=== PATIENT | male | born 1980 | race Caucasian/White ===

== ENCOUNTER 2016-12-15 08:58 | Emergency (ER) | payer OTHER ==
--- NOTE | ~2016-12-15 | CT52 ---
[facility] A Service of [facility] & [facility] RADIOLOGY TEXT RESULTS PATIENT: DIONTE ROMERO LOCATION: [facility] : 76 UNIT #: [id number] AGE: [address]: Ricardo Mcneill MD SEX: M ORDER DR: [id number] [facility] [address] [place], [place] [address] [id number] E MR#: [id number] Acc #: [id number] NAME: DIONTE ROMERO : 1980 SEX: M STUDY DATE/TIME: 12/15/2016 8:09 UNIT: [facility] ROOM: STUDY DESCRIPTION: CT Cervical Spine Wo Cont Attending Physician: Ricardo Mcneill M.D. Ordering Physician: Ricardo Mcneill M.D. Primary Care Physician: No Primary Care Physician MEDICAL IMAGING REPORT This report is preliminary unless electronic signature is present EXAM CT cervical spine, 12/15/2016. HISTORY Unwitnessed seizure at home, witnessed seizure ER, headache all over. History of seizures. Neck pain today. TECHNIQUE CT cervical spine performed. Bone and soft tissue windows are reviewed. Sagittal and coronal reconstructions performed. This CT exam was performed with one or more of the following radiation dose reduction techniques: automatic exposure control, adjustment of mA and/or kV according to patient size, and iterative reconstruction. COMPARISON STUDIES No prior CTs of cervical spine for comparison. FINDINGS Visualized portions of brain are unremarkable. Nasopharyngeal, oropharyngeal, pharyngeal mucosal retropharyngeal spaces, larynx, subglottic airway, visualized superior mediastinum, lung apices, thyroid, submandibular, and visualized parotid glands show no acute abnormalities. No adenopathy. Unopacified vascular structures unremarkable. No evidence of acute traumatic soft tissue abnormality. Alignment of cervical spine in lateral projection normal. There is cervicothoracic scoliosis with mild rightward curvature in the cervical spine and leftward curvature incompletely visualized in the upper thoracic spine. Vertebral body heights, intervertebral disc space heights, and facet joint relationships are normal. There is no indication of traumatic malalignment. C2-C3, C3-C4, C4-C5, C5-C6, C6-C7, C7-T1, T1-T1, T2-T3, T3-T4: No disc bulge or herniation. Spinal canal diameter normal. Neural foramina STS. [facility] A Service of [facility] & [facility] RADIOLOGY TEXT RESULTS PATIENT: DIONTE ROMERO LOCATION: [facility] : 76 UNIT #: [id number] AGE: [address]: Ricardo Mcneill MD SEX: M ORDER DR: patent without evidence of exiting nerve impingement. IMPRESSION 1. No traumatic fracture or malalignment is seen. 2. Cervicothoracic scoliosis with mild rightward curve in cervical spine and leftward curve in the partially visualized upper thoracic spine. 3. No significant disc bulge. Spinal canal diameter normal. Neural foramina patent without evidence of exiting nerve impingement. 4. No paraspinal traumatic soft tissue abnormality suggested. 5. Please see complete details in body of report above. Dictated by... Yared French M.D. THIS IS AN ELECTRONICALLY VERIFIED REPORT Yared French M.D. at 12/16/2016 4:50 PM [place]/ovidio TD: 12/15/2016 10:38 JOB #: [id number] MEDICAL IMAGING REPORT Page 1 of 1 COPY
--- NOTE | ~2016-12-15 | CR181 ---
[facility] A Service of [facility] & [facility] RADIOLOGY TEXT RESULTS PATIENT: DIONTE ROMERO LOCATION: [facility] : 78 UNIT #: [id number] AGE: [address]: Ricardo Mcneill MD SEX: M ORDER DR: [id number] [facility] [address] [place], [place] [address] [id number] P MR#: [id number] Acc #: [id number] NAME: DIONTE ROMERO : 1980 SEX: M STUDY DATE/TIME: 12/15/2016 7:19 UNIT: [facility] ROOM: STUDY DESCRIPTION: CR Lumbar Spine 2 or 3 Views Attending Physician: Ricardo Mcneill M.D. Ordering Physician: Ricardo Mcneill M.D. Primary Care Physician: Joselin Sorensen M.D. MEDICAL IMAGING REPORT This report is preliminary unless electronic signature is present EXAM Lumbar spine series, 12/15/2016 HISTORY Trauma. The patient reports possible seizures today. Reports soreness in back. FINDINGS AP and two lateral views of the lumbar spine are presented. No traumatic fracture or malalignment. Vertebral body heights and intervertebral disc space heights are preserved. Mild to moderate facet degenerative changes suggested L3, L4, L4, L5, L5-S1. Visualized bony pelvis and lower thoracic spine unremarkable. Visualized lung bases clear. Visualized bowel gas pattern normal. Dictated by... Yared French M.D. THIS IS AN ELECTRONICALLY VERIFIED REPORT Yared French M.D. at 12/16/2016 4:50 PM [place] TD: 12/15/2016 08:52 JOB #: [id number] MEDICAL IMAGING REPORT Page 1 of 1 COPY
--- NOTE | ~2016-12-15 | CR72 ---
[facility] A Service of [facility] & [facility] RADIOLOGY TEXT RESULTS PATIENT: DIONTE ROMERO LOCATION: [facility] : 78 UNIT #: [id number] AGE: [address]: Ricardo Mcneill MD SEX: M ORDER DR: [id number] [facility] [address] [place], [place] [address] [id number] P MR#: [id number] Acc #: [id number] NAME: DIONTE ROMERO : 1980 SEX: M STUDY DATE/TIME: 12/15/2016 7:19 UNIT: [facility] ROOM: STUDY DESCRIPTION: CR Chest Single View Portable Attending Physician: Ricardo Mcneill M.D. Ordering Physician: Ricardo Mcneill M.D. Primary Care Physician: Joselin Sorensen M.D. MEDICAL IMAGING REPORT This report is preliminary unless electronic signature is present EXAM Portable chest x-ray HISTORY Altered mental status. Additional history: reports possible seizures today. Reports soreness in back. FINDINGS AP radiograph of the chest is presented. Comparison 07/03/2016 at 0244 hours. Heart and mediastinum normal in size and contour. Lungs well-inflated. No acute pulmonary disease, pneumothorax, or suspicious nodule. Bony structures are unremarkable. Visualized upper abdomen unremarkable. Dictated by... Yared French M.D. THIS IS AN ELECTRONICALLY VERIFIED REPORT Yared French M.D. at 12/16/2016 4:49 PM [place]/indu TD: 12/15/2016 08:56 JOB #: [id number] MEDICAL IMAGING REPORT Page 1 of 1 COPY
--- NOTE | ~2016-12-15 | CT71 ---
[facility] A Service of [facility] & [facility] RADIOLOGY TEXT RESULTS PATIENT: DIONTE ROMERO LOCATION: [facility] : 76 UNIT #: [id number] AGE: [address]: Ricardo Mcneill MD SEX: M ORDER DR: [id number] [facility] [address] [place], [place] [address] [id number] E MR#: [id number] Acc #: [id number] NAME: DIONTE ROMERO : 1980 SEX: M STUDY DATE/TIME: 12/15/2016 8:09 UNIT: [facility] ROOM: STUDY DESCRIPTION: CT Head Wo Contrast Attending Physician: Ricardo Mcneill M.D. Ordering Physician: Ricardo Mcneill M.D. Primary Care Physician: No Primary Care Physician MEDICAL IMAGING REPORT This report is preliminary unless electronic signature is present EXAM CT of the head 12/15/2016 HISTORY Seizures, un-witnessed seizure at home. Witnessed seizure at ER. Headache. History of seizures. All over neck pain today. TECHNIQUE CT head performed skull base through vertex without intravenous contrast. No prior studies for comparison. This CT exam was performed with one or more of the following radiation dose reduction techniques: automatic exposure control, adjustment of mA and/or kV according to patient size, and iterative reconstruction. FINDINGS Multiple images significantly degraded by motion artifact. No definite intracranial hemorrhage or acute cortical ischemia. Areas of ischemia or hemorrhage could be obscured by motion artifact. No intracranial mass effect or abnormal fluid collection. Ventricles, cisterns, and sulci are normal in size and contour. The intraorbital soft tissues unremarkable. Mucous retention cysts in bilateral maxillary sinuses. No acute fracture. Appearance of the nasal bones suggest old healed left nasal bone fracture. Correlate with history and exam. No overlying acute-appearing soft tissue abnormality. IMPRESSION 1. Motion-degraded examination. No acute abnormality is seen in the brain but given the limitations of the examination, if the patient has ongoing neurologic symptoms, consider follow-up imaging. In light of patient history, consider follow-up seizures protocol MRI if patient is a candidate for MRI. 2. No acute-appearing fracture. Appearance of the left nasal bones suggest old healed left nasal bone fracture. No overlying STS. [facility] A Service of [facility] & [facility] RADIOLOGY TEXT RESULTS PATIENT: DIONTE ROMERO LOCATION: [facility] : 76 UNIT #: [id number] AGE: [address]: Ricardo Mcneill MD SEX: M ORDER DR: acute-appearing soft tissue abnormality. Correlate with exam history. 3. Bilateral mucous retention cyst in maxillary sinuses. Dictated by... Yared French M.D. THIS IS AN ELECTRONICALLY VERIFIED REPORT Yared French M.D. at 12/16/2016 4:50 PM [place]/indu TD: 12/15/2016 09:55 JOB #: [id number] MEDICAL IMAGING REPORT Page 1 of 1 COPY
--- NOTE | ~2016-12-15 | EKG ---
PATIENT: DIONTE ROMERO UNIT #: [id number] Ventricular Rate: 85 BPM Atrial Rate: 85 BPM P-R Interval: 146 ms QRS Duration: 90 ms Q-T Interval: 370 ms QTC Calculation(Bezet): 440 ms P [place]: 43 degrees Calculated R [place]: 44 degrees Calculated T [place]: 22 degrees Diagnosis Line: Normal sinus rhythm Diagnosis Line: Normal ECG Diagnosis Line: When compared with ECG of 03-JUL-2016 01:42, Diagnosis Line: No significant change was found Diagnosis Line: Confirmed by SHAR ARORA MD ([id number]) on 12/16/2016 Diagnosis Line: 7:00:04 PM INTERPRETING MD: MAITE SOUSA
[2016-12-15 08:10] LABS: POC - CKMB 1.4 ng/mL (0.0-7.9); POC - TROPONIN <0.05 ng/mL (<=0.05)
[2016-12-15 08:27] LABS: BASOPHIL# 0.1 X10e3 (0-0.3); BASOPHIL% 0.3 % (0-2.5); EOSINOPHIL% 0.2 % (0.0-7.0); HEMATOCRIT 52.9 % (38.0-50.0); HEMOGLOBIN 17.2 gm/dL (13.0-16.0); LYMPHOCYTE# 4.3 X10e3 (1.0-3.5); LYMPHOCYTE% 18.6 % (17.0-45.0); MEAN CELL VOLUME 97.9 FL (83-96); MEAN CORPUSCULAR HEMOGLOBIN 31.8 PG (28-34); MEAN CORPUSCULAR HGB CONC 32.4 g/dL (30-36); MEAN PLATELET VOLUME 10.7 FL (6.5-11.5); MONOCYTE# 2.3 X10e3 (0-1.0); MONOCYTE% 10.1 % (3.0-12.0); NEUTROPHIL# 16.4 X10e3 (1.5-7.1); NEUTROPHIL% 70.8 % (40-75); PLATELET COUNT 201 X10e3 (140-420); RED CELL DISTRIBUTION WIDTH 13.5 % (11.0-15.5); WHITE BLOOD COUNT 23.2 X10e3 (4.0-10.5)
[2016-12-15 08:32] LABS: DIFF IND YES
[2016-12-15 08:49] LABS: ALBUMIN SERUM 4.9 g/dL (3.5-5.0); ALKALINE PHOSPHATASE 96 U/L (32-92); ALT (SGPT) 27 U/L (10-40); AST (SGOT) 34 U/L (10-42); BILIRUBIN, DIRECT 0.1 mg/dL (0.0-0.2); BILIRUBIN,INDIRECT 1.1 mg/dL (0.0-0.9); BILIRUBIN,TOTAL 1.2 mg/dL (0.2-2.0); BLOOD UREA NITROGEN 20 mg/dL (9-23); BUN/CREATININE RATIO 16.66; CARBON DIOXIDE 16 mmol/L (22-31); CHLORIDE 108 mmol/L (100-111); CREATININE SERUM 1.2 mg/dL (0.6-1.4); GLOM FILT RATE Estimated 76.3 mL/min (>60); GLUCOSE FASTING 118 mg/dL (70-110); POTASSIUM 3.5 mmol/L (3.5-5.1); PROTEIN TOTAL SERUM 8.2 g/dL (6.0-8.3); SODIUM 149 mmol/L (135-145)
[2016-12-15 08:50] LABS: ALCOHOL BLOOD <5 mg/dL (0)
[2016-12-15 09:42] LABS: PLATELET ESTIMATE NORMAL (NORMAL)
[2016-12-15 09:56] LABS: POC - CKMB 1.1 ng/mL (0.0-7.9); POC - TROPONIN <0.05 ng/mL (<=0.05)
[2016-12-15 11:03] LABS: URINE SOURCE CLEAN CATCH
[2016-12-15 11:27] LABS: URINE BILIRUBIN NEG (NEG); URINE BLOOD TRACE (NEG); URINE COLOR YELLOW; URINE GLUCOSE NEG (NEG); URINE KETONE TRACE (NEG); URINE LEUKOCYTE ESTERASE NEG (NEG); URINE NITRATE NEG (NEG); URINE PROTEIN 2+ (NEG); URINE SPECIFIC GRAVITY 1.023 (1.003-1.035)
[2016-12-15 11:30] LABS: URINE BACTERIA AUWI NEG (NEGATIVE); URINE SQUAMOUS EPITHELIAL CELL NONE SEEN /[HPF]
[2016-12-15 11:38] LABS: AMPHETAMINE POS (NEG); BARBITURATES NEG (NEG); BENZODIAZEPINES NEG (NEG); COCAINE NEG (NEG); MARIJUANA NEG (NEG); OPIATES NEG (NEG); TRICYCLIC ANTIDEPRESSANTS NEG (NEG); U METHADONE NEG (NEG)
[2016-12-15 11:47] LABS: CULTURE INDICATED? NO; URINE APPEARANCE HAZY
[2016-12-15 11:49] LABS: U HYALINE CASTS AUWI 0-2 /[LPF]; URINE MUCUS PRESENT
[2016-12-15 11:50] LABS: URINE GRANULAR CAST 0-2 /[HPF]
[2016-12-15 11:51] LABS: URINE WHITE BLOOD CELL CAST 0-2 /[HPF]
[2016-12-15 11:58] LABS: BASOPHIL% 0.2 % (0-2.5); EOSINOPHIL% 0.1 % (0.0-7.0); HEMATOCRIT 45.3 % (38.0-50.0); HEMOGLOBIN 15.3 gm/dL (13.0-16.0); LYMPHOCYTE# 1.9 X10e3 (1.0-3.5); LYMPHOCYTE% 9.7 % (17.0-45.0); MEAN CORPUSCULAR HEMOGLOBIN 31.8 PG (28-34); MEAN CORPUSCULAR HGB CONC 33.7 g/dL (30-36); MEAN PLATELET VOLUME 10.1 FL (6.5-11.5); MONOCYTE# 1.7 X10e3 (0-1.0); NEUTROPHIL# 15.6 X10e3 (1.5-7.1); PLATELET COUNT 183 X10e3 (140-420); RED BLOOD COUNT 4.79 X10e (3.90-5.60); RED CELL DISTRIBUTION WIDTH 13.3 % (11.0-15.5); WHITE BLOOD COUNT 19.2 X10e3 (4.0-10.5)
[2016-12-15 12:00] LABS: MEAN CELL VOLUME 94.6 FL (83-96)
[2016-12-15 12:01] LABS: DIFF IND NO
== END 2016-12-15 12:35 | disposition home or self-care (01) ==
LOC: CED 08:58
PROVIDERS: Emergency Medicine
DX: R56.9 Unspecified convulsions (principal); F19.10 Other psychoactive substance abuse, uncomplicated; F17.200 Nicotine dependence, unspecified, uncomplicated; Z91.030 Bee allergy status; Z88.5 Allergy status to narcotic agent
CPT/HCPCS: 36415; 70450; 71010; 72100; 72125; 80048; 80076; 80307; 81003; 82550; 82553; 82947; 84484; 85025; 90471; 90715; 93005; 96361; 96365; 96375; 99284; G0480; J1885; J1953; J2060